=== PATIENT | female | born 1950 | race Caucasian/White ===

== ENCOUNTER 2017-08-06 12:29 | Emergency (ER) | payer MEDICARE, BC, OTHER ==
--- NOTE | 2017-08-06 13:26 | EDM.PDOC ---
ED HPI GENERAL MEDICAL PROBLEM - General Chief Complaint: Cardiovascular Problem Stated Complaint: [facility] TOLD HER TO COME TO ER Time Seen by Provider: 08/06/17 13:05 Source of Information: Reports: Patient, Family, Provider History Limitations: Reports: No Limitations - History of Present Illness INITIAL COMMENTS - FREE TEXT/NARRATIVE: 66-year-old female was at the [facility] for chemotherapy due to metastatic colon cancer, when they noticed her vitals reveal tachycardia. She was given 500 mL bolus of normal saline and she still remained around 130. She was not complaining of any significant dyspnea, chest pain, or pain but did have some nausea overnight. After the 500 mL bolus did not make much difference , they called oncology and they told them to send her over to the emergency room because she could be having a "PE". She is scheduled for a CT scan with IV contrast in 4 days. Her O2 saturations are 95-96% which is normal baseline for her. She denies any pleuritic chest pain. Onset: Unknown/Unsure Severity: Mild Associated Symptoms: Reports: Weakness. Denies: Confusion, Chest Pain, Shortness of Breath Denies Pain Score (Numeric/FACES): 0 - Related Data Allergies Allergy/AdvReac Type Severity Reaction Status Date / Time No Known Allergies Allergy Verified 08/06/17 12:53 Home Meds: Home Meds LORazepam 0.5 mg PO Q4H PRN #60 tablet 10/15/15 [Rx] Ondansetron HCl [Ondansetron] 4 mg PO Q6H PRN #30 tablet 10/15/15 [Rx] Scopolamine [Transderm-Scop] 1.5 mg TRDERM Q72H PRN #10 patch 10/15/15 [Rx] Loratadine [Claritin] 10 mg PO DAILY 08/06/17 [History] traMADol HCl [Tramadol HCl] 50 mg PO Q6H PRN 08/06/17 [History] Past Medical History HEENT History: Reports: Impaired Vision Respiratory History: Reports: COPD Other Respiratory History: non recurrent pneumonia 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: Musculoskeletal History: Reports: Back Pain, Chronic, Osteoarthritis Other Musculoskeletal History: compressed disks in back Psychiatric History: Reports: Anxiety, Depression Hematologic History: Reports: Blood Transfusion(s) Oncologic (Cancer) History: Reports: Colon, Other (See Below) 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 - Infectious Disease History Infectious Disease History: Reports: Chicken Pox - Past Surgical History GI Surgical History: Reports: Other (See Below) Other GI Surgeries/Procedures: Illeostomy Social & Family History - Family History Cardiac: Reports: [place] GI: Reports: Irritable Bowel Syndrome Hematologic: Reports: None Oncologic: Reports: Brain, Other (See Below) Other Oncologic Family History: melanoma - Tobacco Use Smoking Status *Q: Former Smoker Years of Tobacco use: 45 Packs/Tins Daily: 0.1 Used Tobacco, but Quit: Yes Month Tobacco Last Used: December Second Hand Smoke Exposure: No - Caffeine Use Caffeine Use: Reports: Coffee, Soda - Recreational Drug Use Recreational Drug Use: No ED ROS GENERAL - Review of Systems Review Of Systems: See Below Constitutional: Reports: Malaise, Weakness. Denies: Fever, Chills Respiratory: Denies: Shortness of Breath, Cough Cardiovascular: Denies: Chest Pain GI/Abdominal: Reports: Nausea. Denies: Abdominal Pain, Vomiting Skin: Denies: Bruising Neurological: Denies: Headache Psychiatric: Reports: No Symptoms ED EXAM, GENERAL - Physical Exam Exam: See Below Exam Limited By: No Limitations General Appearance: Alert, No Apparent Distress Head: Atraumatic Respiratory/Chest: No Respiratory Distress, Decreased Breath Sounds (She does have decreased breath sounds in the left lung but no wheezing rales or rhonchi) Cardiovascular: Regular Rate, Rhythm, Tachycardia GI/Abdominal: Non-Tender Extremities: No: Pedal Edema Neurological: Alert, Oriented Psychiatric: Normal Affect, Normal Mood Skin Exam: Warm, Dry Course - Vital Signs Last Recorded V/S: Last Vital Signs Temp 96.3 F 08/06/17 13:07 Pulse 124 H 08/06/17 16:07 Resp 20 08/06/17 16:07 BP 180/95 H 08/06/17 16:07 Pulse Ox 95 08/06/17 16:07 - Orders/Labs/Meds Orders: Active Orders 24 hr Category Date Time Status Chest w Cont [CT] Stat Exams 08/06/17 14:22 Taken Labs: Laboratory Tests 08/06/17 08/06/17 08/06/17 Range/Units 13:20 13:20 13:20 WBC 18.0 H (4.5-11.0) K/uL RBC 5.03 (3.30-5.50) M/uL Hgb 14.4 D (12.0-15.0) g/dL Hct 43.1 (36.0-48.0) % MCV 86 (80-98) fL MCH 29 (27-31) pg MCHC 33 (32-36) % Plt Count 521 H (150-400) K/uL Neut % (Auto) 91 H (36-66) % Lymph % (Auto) 3 L (24-44) % Banks % (Auto) 6 (2-6) % Eos % (Auto) 0 L (2-4) % Baso % (Auto) 0 (0-1) % D-Dimer, Quantitative 3230 H (0.0-400.0) ng/mL Sodium 143 (140-148) mmol/L Potassium 3.7 (3.6-5.2) mmol/L Chloride 104 (100-108) mmol/L Carbon Dioxide 27 (21-32) mmol/L Anion Gap 12.2 (5.0-14.0) mmol/L BUN 16 (7-18) mg/dL Creatinine 0.7 D (0.6-1.0) mg/dL Est Cr Clr Drug Dosing 57.55 mL/min Estimated GFR (MDRD) > 60 (>60) Glucose 133 H (74-106) mg/dL Calcium 8.6 (8.5-10.1) mg/dL Troponin I (0.000-0.056) ng/mL 08/06/17 Range/Units 13:20 WBC (4.5-11.0) K/uL RBC (3.30-5.50) M/uL Hgb (12.0-15.0) g/dL Hct (36.0-48.0) % MCV (80-98) fL MCH (27-31) pg MCHC (32-36) % Plt Count (150-400) K/uL Neut % (Auto) (36-66) % Lymph % (Auto) (24-44) % Banks % (Auto) (2-6) % Eos % (Auto) (2-4) % Baso % (Auto) (0-1) % D-Dimer, Quantitative (0.0-400.0) ng/mL Sodium (140-148) mmol/L Potassium (3.6-5.2) mmol/L Chloride (100-108) mmol/L Carbon Dioxide (21-32) mmol/L Anion Gap (5.0-14.0) mmol/L BUN (7-18) mg/dL Creatinine (0.6-1.0) mg/dL Est Cr Clr Drug Dosing mL/min Estimated GFR (MDRD) (>60) Glucose (74-106) mg/dL Calcium (8.5-10.1) mg/dL Troponin I < 0.017 (0.000-0.056) ng/mL Meds: Medications Discontinued Medications Generic Name Dose Route Start Last Admin Trade Name Freq PRN Reason Stop Dose Admin Heparin Sodium (Porcine) 300 units 08/06/17 16:16 08/06/17 16:12 Heparin Lock Flush 100 Units/Ml FLUSH 08/06/17 16:17 300 units ASDIRECTED ONE Administration Sodium Chloride 1,000 mls @ 500 mls/hr 08/06/17 13:30 08/06/17 13:27 Normal Saline IV 500 mls/hr ASDIRECTED LILI Administration Sodium Chloride 75 mls @ 3 mls/sec 08/06/17 14:34 08/06/17 14:57 Normal Saline IV 08/06/17 14:35 3 mls/sec ONETIME ONE Administration Iopamidol 100 ml 08/06/17 14:34 08/06/17 14:57 Isovue-300 (61%) IV 100 ml . DIRECTED PRN Administration RADIOLOGY EXAM Sodium Chloride 10 ml 08/06/17 14:34 08/06/17 14:57 Saline Flush FLUSH 10 ml ONETIME PRN Administration PER RADIOLOGY PROTOCOL - Re-Assessments/Exams Free Text/Narrative Re-Assessment/Exam: 08/06/17 13:30 An EKG done over at the infusion center shows sinus tachycardia with occasional PVCs. Her rate here in the emergency room is 126, continues in a sinus rhythm. After visiting with the patient and with the on-call oncology physician a CBC, BMP were obtained and d-dimer. D-dimer was markedly elevated, CBC and BMP were normal other than an elevated white count of 18,000. Creatinine is normal and GFR was over 60. At the request of oncology, a CT angiogram of the chest was obtained to rule out PE. Fluids were continued. 08/06/17 15:58 CT returned showing likely esophagitis, less tumor burden and no evidence of PE , however it was a suboptimal PE study. Radiology could confirm there is no significant PE burden but small PEs may be missed with the technique used. Her rate continued to be tachycardic but slowed to a rate of 110 to 115 at times, O2 saturations remain normal. She did develop some persistent nausea. Patient wanted to try to go home for the weekend, will return if not improving satisfactorily. 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 Return to ER this if you feel you're worsening, or call your oncology physicians for an update on Wednesday. - My Orders Last 24 Hours: My Active Orders 08/06/17 14:22 Chest w Cont [CT] Stat - Assessment/Plan Last 24 Hours: My Active Orders 08/06/17 14:22 Chest w Cont [CT] Stat
[2017-08-06] MEDS ORDERED: Sodium Chloride 0.9% 1,000 ML IV SCH (13:30)
[2017-08-06] MEDS ORDERED: Iopamidol 612 MG/ML 100 ML Bottle IV PRN (14:34)
[2017-08-06] MEDS ORDERED: Sodium Chloride 0.9% 10 ML Syringe FLUSH PRN (14:34)
[2017-08-06] MEDS ORDERED: Sodium Chloride 0.9% 75 ML IV ONE (14:34)
[2017-08-06 16:08] VITALS: BP 180/95
== END 2017-08-06 16:35 | disposition home or self-care (01) ==
LOC: JP.ED 12:29
DX: R00.0 Tachycardia, unspecified (principal); R11.2 Nausea with vomiting, unspecified; C20 Malignant neoplasm of rectum; C78.00 Secondary malignant neoplasm of unspecified lung; C78.7 Secondary malignant neoplasm of liver and intrahepatic bile duct; F32.9 Major depressive disorder, single episode, unspecified; Z87.891 Personal history of nicotine dependence; Z79.899 Other long term (current) drug therapy
CPT/HCPCS: 36415; 71260; 80048; 84484; 85025; 85379; 96360; 96361; 99285; J1642; J7030; J7040; J7050; Q9967; 99284

== ENCOUNTER 2017-08-08 10:05 | Emergency (ER) | payer MEDICARE, BC, OTHER ==
[2017-08-08] MEDS ORDERED: Sodium Chloride 0.9% 1,000 ML IV SCH (11:30)
--- NOTE | 2017-08-08 11:35 | EDM.PDOC ---
ED HPI GENERAL MEDICAL PROBLEM - General Chief Complaint: Gastrointestinal Problem Stated Complaint: NAUSEA Time Seen by Provider: 08/08/17 11:15 Source of Information: Reports: Patient, Family History Limitations: Reports: No Limitations - History of Present Illness INITIAL COMMENTS - FREE TEXT/NARRATIVE: 66-year-old female with known metastatic cancer to the lungs, believed to be a colon primary presented to the emergency room with tachycardia from the infusion center after chemotherapy 2 days ago with tachycardia. A CT of the chest was done which showed no PE, however the technique was not ideal. Over the last 48 hours she continues to have persistent nausea, is unable to eat anything, and has developed worsening hiccups. She has marked tenderness with swallowing. She arrives concerned that she can't take any medications or fluids and she continues to be at a rate of 136 and a sinus rhythm. Other than the sore throat she has no other specific pain complaints. No fevers. Is not short of breath or has not developed any pleuritic chest pain. Onset: Gradual (Worsening over the past 48 hours) Severity: Moderate Improves with: Reports: None Worsens with: Reports: Other (Swallowing) Associated Symptoms: Reports: Nausea/Vomiting, Other (Persistent hiccups). Denies: Fever/Chills - Related Data Allergies Allergy/AdvReac Type Severity Reaction Status Date / Time No Known Allergies Allergy Verified 08/08/17 11:01 Home Meds: Home Meds LORazepam 0.5 mg PO Q4H PRN #60 tablet 10/15/15 [Rx] Ondansetron HCl [Ondansetron] 4 mg PO Q6H PRN #30 tablet 10/15/15 [Rx] Loratadine [Claritin] 10 mg PO DAILY 08/06/17 [History] traMADol HCl [Tramadol HCl] 50 mg PO Q6H PRN 08/06/17 [History] Prochlorperazine Maleate [Compazine] 1 tab PO TID 08/08/17 [History] Past Medical History HEENT History: Reports: Impaired Vision Respiratory History: Reports: COPD Other Respiratory History: non recurrent pneumonia 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: Musculoskeletal History: Reports: Back Pain, Chronic, Osteoarthritis Other Musculoskeletal History: compressed disks in back Psychiatric History: Reports: Anxiety, Depression Hematologic History: Reports: Blood Transfusion(s) Oncologic (Cancer) History: Reports: Colon, Other (See Below) 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 - Infectious Disease History Infectious Disease History: Reports: Chicken Pox - Past Surgical History GI Surgical History: Reports: Other (See Below) Other GI Surgeries/Procedures: Illeostomy Social & Family History - Family History Cardiac: Reports: [place] GI: Reports: Irritable Bowel Syndrome Hematologic: Reports: None Oncologic: Reports: Brain, Other (See Below) Other Oncologic Family History: melanoma - Tobacco Use Smoking Status *Q: Never Smoker Years of Tobacco use: 45 Packs/Tins Daily: 0.1 Used Tobacco, but Quit: Yes Month Tobacco Last Used: December Second Hand Smoke Exposure: No - Caffeine Use Caffeine Use: Reports: Coffee, Soda - Recreational Drug Use Recreational Drug Use: No ED ROS GENERAL - Review of Systems Review Of Systems: See Below Constitutional: Reports: Malaise. Denies: Fever, Chills HEENT: Reports: Throat Pain Respiratory: Denies: Shortness of Breath Cardiovascular: Denies: Chest Pain, Palpitations GI/Abdominal: Reports: Nausea, Vomiting. Denies: Abdominal Pain Skin: Reports: No Symptoms Neurological: Reports: Weakness. Denies: Headache Psychiatric: Reports: No Symptoms ED EXAM, GENERAL - Physical Exam Exam: See Below Exam Limited By: No Limitations General Appearance: Alert, No Apparent Distress (Patient is not distress but she does look uncomfortable and very tired) Respiratory/Chest: No Respiratory Distress, Decreased Breath Sounds (Diffuse decreased breath sounds) Cardiovascular: Regular Rate, Rhythm, Tachycardia Extremities: Other (Extremities are thin, somewhat cachectic) Neurological: Alert, Oriented Skin Exam: Warm, Dry Course - Vital Signs Last Recorded V/S: Last Vital Signs Temp 97.2 F 08/08/17 11:08 Pulse 137 H 08/08/17 12:42 Resp 20 08/08/17 12:42 BP 121/73 08/08/17 12:42 Pulse Ox 92 L 08/08/17 12:42 - Orders/Labs/Meds Labs: Laboratory Tests 08/08/17 08/08/17 Range/Units 11:27 11:27 WBC 50.3 H* (4.5-11.0) K/uL RBC 4.85 (3.30-5.50) M/uL Hgb 14.0 (12.0-15.0) g/dL Hct 42.1 (36.0-48.0) % MCV 87 (80-98) fL MCH 29 (27-31) pg MCHC 33 (32-36) % Plt Count 358 (150-400) K/uL Add Manual Diff Yes Neutrophils % (Manual) 80 H (36-66) % Band Neutrophils % 14 H (5-11) % Lymphocytes % (Manual) 2 L (24-44) % Monocytes % (Manual) 4 (2-6) % Sodium 142 (140-148) mmol/L Potassium 3.5 L (3.6-5.2) mmol/L Chloride 101 (100-108) mmol/L Carbon Dioxide 27 (21-32) mmol/L Anion Gap 17.5 H (5.0-14.0) mmol/L BUN 31 H D (7-18) mg/dL Creatinine 0.9 (0.6-1.0) mg/dL Est Cr Clr Drug Dosing 44.76 mL/min Estimated GFR (MDRD) > 60 (>60) Glucose 151 H (74-106) mg/dL Calcium 8.4 L (8.5-10.1) mg/dL Total Bilirubin 0.7 (0.2-1.0) mg/dL AST 15 (15-37) U/L ALT 17 (12-78) U/L Alkaline Phosphatase 191 H (46-116) U/L Total Protein 6.4 (6.4-8.2) g/dL Albumin 3.5 (3.4-5.0) g/dL Globulin 2.9 (2.3-3.5) g/dL Albumin/Globulin Ratio 1.2 (1.2-2.2) Amylase 72 (25-115) U/L Lipase 41 L (73-393) U/L Meds: Medications Discontinued Medications Generic Name Dose Route Start Last Admin Trade Name Freq PRN Reason Stop Dose Admin Sodium Chloride 1,000 mls @ 500 mls/hr 08/08/17 11:30 08/08/17 11:28 Normal Saline IV 500 mls/hr ASDIRECTED LILI Administration Ondansetron HCl 4 mg 08/08/17 12:45 08/08/17 12:58 Zofran IVPUSH 08/08/17 12:46 4 mg ONETIME ONE Administration - Re-Assessments/Exams Free Text/Narrative Re-Assessment/Exam: 08/08/17 11:35 Assessing her report, she was given 1 L of normal saline. CBC, CMP, amylase and lipase were obtained. 08/08/17 12:15 White blood cell count is now 50,000. BUN is elevated to 31, GFR and creatinine are still normal. Electrolytes are stable. Findings were discussed with the hospitalist service, Dr. Rose, of [facility] in [place], his agreed to accept the patient for a cardiology, oncology, and gastroenterology consultations. 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
[2017-08-08] MEDS ORDERED: Ondansetron 4 MG/2 ML SDV IVPUSH ONE (12:45)
[2017-08-08 12:59] VITALS: BP 121/73
== END 2017-08-08 13:01 | disposition other institution (70) ==
LOC: JP.ED 10:05
DX: C20 Malignant neoplasm of rectum (principal); C78.00 Secondary malignant neoplasm of unspecified lung; E86.0 Dehydration; K20.9 Esophagitis, unspecified; D72.825 Bandemia; Z79.899 Other long term (current) drug therapy
CPT/HCPCS: 36415; 80053; 82150; 83690; 85025; 96361; 96374; 99284; J2405; J7040; J7030